=== PATIENT | male | born 1965 | race Caucasian/White ===

== ENCOUNTER 2018-07-02 17:55 | Emergency (ER) | payer SELFPAY ==
[2018-07-02] MEDS ORDERED: NA CHLORIDE 0.9% 1,000 ML ONE (18:56)
--- NOTE | 2018-07-02 19:08 | RAD REPORT ---
EXAM DESCRIPTION: Bisit Single View07/02/2018 6:56 pm CLINICAL HISTORY: CHEST PAIN COMPARISON: Chest Pa And Lat (2 Views) dated 05/09/2017; Chest For Pe Angio dated 05/09/2017 FINDINGS: The lungs appear clear of acute infiltrate. The heart is normal size IMPRESSION: No acute abnormalities displayed
[2018-07-02 19:11] LABS: Absolute Lymphocytes (CBC) 2.4 K/uL (0.7-4.9); Absolute Monocytes 0.6 K/uL (0.1-1.3); Absolute Neutrophil 5.2 K/uL (1.8-8.0); Basophils % 0.5 % (0-1.3); Eosinophils % 2.1 % (0-4.4); Hematocrit 47.5 % (39.6-49.0); Lymphocytes % 28.5 % (15.3-44.8); MCH 32.9 pg (27.0-35.0); MCV 95.6 fL (80-100); MPV 9.9 fL (7.6-11.3); Monocytes % 6.6 % (3.3-12.3); RBC Red Blood Cell Count 4.97 M/uL (4.33-5.43)
--- NOTE | 2018-07-02 19:16 | RAD REPORT ---
EXAM DESCRIPTION: CT - Head Brain Wo Cont - 07/02/2018 6:56 pm CLINICAL HISTORY: DIZZINESS COMPARISON: none TECHNIQUE: Computed axial tomography of the head was obtained. IV contrast was not requested. All CT scans are performed using dose optimization technique as appropriate and may include automated exposure control or mA/KV adjustment according to patient size. FINDINGS: An intracranial bleed is not seen . The ventricles are normal in caliber. No extra-axial fluid collection is noted. Fluid within the sinuses/ mastoids is not seen. IMPRESSION: No acute intracranial abnormality is seen. If patient's symptoms persist MRI of the bra in would be recommended.
[2018-07-02 19:26] LABS: Protime INR 1.2
[2018-07-02 19:33] LABS: AST/SGOT 402 U/L (15-37); Albumin 3.5 g/dL (3.4-5.0); Alkaline Phosphatase 234 U/L (45-117); BUN Blood Urea Nitrogen 15 mg/dL (7-18); Bicarbonate 27 mmol/L (21-32); Bilirubin Total 3.2 mg/dL (0.2-1.0); CKMB Creatine Kinase MB 4.2 ng/mL (0.3-3.6); Creatine Phosphokinase 287 U/L (39-308); Glucose Level 151 mg/dL (74-106); Magnesium 2.2 mg/dL (1.8-2.4); NT PRO-BNP 46 pg/mL (<125); Potassium 4.3 mmol/L (3.5-5.1); Protein, Total 7.5 g/dL (6.4-8.2); Sodium Level 134 mmol/L (136-145); Troponin (Emerg Dept Use Only) < 0.02 ng/mL (0.0-0.045)
[2018-07-02] MEDS ORDERED: ALBUTEROL 2.5 MG/3 ML NEB SOL ONE (19:41)
[2018-07-02 19:42] LABS: ALT/SGPT 301 U/L (12-78)
--- NOTE | 2018-07-02 20:38 | EDPHYS ---
Physician Documentation [facility] Name: Virgilio Samuel Age: 52 yrs Sex: Male : 1965 Arrival Date: 07/02/2018 Time: 17:59 Bed 8 Private MD: ED Physician Gio Noriega HPI: 07/02 20:13 This 52 yrs old Male presents to ER via Ambulatory with complaints of Vision snw Problem, Dizziness. 20:13 Onset: The symptoms/episode began/occurred suddenly, 2 day(s) ago, and became snw persistent. Associated signs and symptoms: Pertinent positives: wheezing. The patient has not experienced similar symptoms in the past. The patient has not recently seen a physician. intermittent dizziness and visual disturbances, Pt drinks 8 beer per day and smokes 2 ppd, no PCP. Historical: - Allergies: 18:19 No Known Allergies; aa5 - PMHx: 18:19 None; aa5 - PSHx: 18:19 Tonsillectomy; L salivary gland; aa5 - Immunization history:: Adult Immunizations unknown. - Social history:: Smoking status: Patient uses tobacco products, smokes two packs cigarettes per day. Patient uses alcohol, claims drinking about a 6 pack/day. - Ebola Screening: : No symptoms or risks identified at this time. ROS: 20:11 Constitutional: Negative for fever, chills, and weight loss, Eyes: Negative for injury, snw pain, redness, and discharge, ENT: Negative for injury, pain, and discharge, Neck: Negative for injury, pain, and swelling, Cardiovascular: Negative for chest pain, palpitations, and edema, Respiratory: Negative for shortness of breath, cough, wheezing, and pleuritic chest pain, Abdomen/GI: Negative for abdominal pain, nausea, vomiting, diarrhea, and constipation, Back: Negative for injury and pain, : Negative for injury, bleeding, discharge, and swelling, MS/Extremity: Negative for injury and deformity, Skin: Negative for injury, rash, and discoloration. 20:11 Neuro: Positive for dizziness, Visual disturbance. Exam: 20:11 Constitutional: This is a well developed, well nourished patient who is awake, alert, snw and in no acute distress. Head/Face: Normocephalic, atraumatic. Eyes: Pupils equal round and reactive to light, extra-ocular motions intact. Lids and lashes normal. Conjunctiva and sclera are non-icteric and not injected. Cornea within normal limits. Periorbital areas with no swelling, redness, or edema. ENT: Nares patent. No nasal discharge, no septal abnormalities noted. Tympanic membranes are normal and external auditory canals are clear. Oropharynx with no redness, swelling, or masses, exudates, or evidence of obstruction, uvula midline. Mucous membranes moist. Neck: Trachea midline, no thyromegaly or masses palpated, and no cervical lymphadenopathy. Supple, full range of motion without nuchal rigidity, or vertebral point tenderness. No Meningismus. Chest/axilla: Normal chest wall appearance and motion. Nontender with no deformity. No lesions are appreciated. Cardiovascular: Regular rate and rhythm with a normal S1 and S2. No gallops, murmurs, or rubs. Normal PMI, no JVD. No pulse deficits. Respiratory: Lungs have equal breath sounds bilaterally, wheezing to auscultation and percussion. No rales, rhonchi noted. No increased work of breathing, no retractions or nasal flaring. Abdomen/GI: Soft, non-tender, with normal bowel sounds. No distension or tympany. No guarding or rebound. No evidence of tenderness throughout. Back: No spinal tenderness. No costovertebral tenderness. Full range of motion. Skin: Warm, dry with normal turgor. Normal color with no rashes, no lesions, and no evidence of cellulitis. MS/ Extremity: Pulses equal, no cyanosis. Neurovascular intact. Full, normal range of motion. Neuro: Awake and alert, GCS 15, oriented to person, place, time, and situation. Cranial nerves II-XII grossly intact. Motor strength 5/5 in all extremities. Sensory grossly intact. Cerebellar exam normal. Normal gait. Psych: Awake, alert, with orientation to person, place and time. Behavior, mood, and affect are within normal limits. Vital Signs: 18:19 BP 141 / 90; Pulse 85; Resp 16 S; Temp 98.9(TE); Pulse Ox 96% on R/A; Weight 81.65 kg aa5 (R); Height 5 ft. 11 in. (180.34 cm) (R); Pain 0/10; 18:19 Body Mass Index 25.10 (81.65 kg, 180.34 cm) aa5 MDM: 18:32 Patient medically screened. snw 20:39 Data reviewed: vital signs, nurses notes. Data interpreted: Pulse oximetry: on room air snw is 96 %. Interpretation: acceptable. Counseling: I had a detailed discussion with the patient and/or guardian regarding: the historical points, exam findings, and any diagnostic results supporting the discharge/admit diagnosis, the presence of at least one elevated blood pressure reading (>120/80) during this emergency department visit, lab results, radiology results, the need for outpatient follow up, to return to the emergency department if symptoms worsen or persist or if there are any questions or concerns that arise at home, smoking cessation. Special discussion: Based on the history and exam findings, there is no indication for further emergent testing or inpatient evaluation. I discussed with the patient/guardian the need to see the corporate pilot for further evaluation of the symptoms. I discussed with the patient/guardian the need to see the primary care provider for further evaluation of the symptoms. 07/02 18:34 Order name: Basic Metabolic Panel; Complete Time: 19:45 snw 07/02 18:34 Order name: CBC with Diff snw 07/02 18:34 Order name: Ckmb; Complete Time: 19:45 snw 07/02 18:34 Order name: CPK; Complete Time: 19:45 snw 07/02 18:34 Order name: LFT's; Complete Time: 19:45 snw 07/02 18:34 Order name: Magnesium; Complete Time: 19:45 snw 07/02 18:34 Order name: NT PRO-BNP; Complete Time: 19:45 snw 07/02 18:34 Order name: PT-INR; Complete Time: 19:29 snw 07/02 18:34 Order name: Ptt, Activated; Complete Time: 19:29 snw 07/02 18:34 Order name: Troponin (emerg Dept Use Only); Complete Time: 19:45 snw 07/02 18:34 Order name: Osmolality, Serum; Complete Time: 20:03 snw 07/02 18:35 Order name: ETOH Level; Complete Time: 19:27 snw 07/02 18:35 Order name: Blood Culture* snw 07/02 19:29 Order name: CBC Smear Scan EDMS 07/02 18:34 Order name: XRAY Chest (1 view); Complete Time: 19:20 snw 07/02 18:34 Order name: CT Head Brain wo Cont; Complete Time: 19:20 snw 07/02 18:34 Order name: EKG; Complete Time: 18:35 snw 07/02 18:34 Order name: Cardiac monitoring; Complete Time: 18:55 snw 07/02 18:34 Order name: EKG - Nurse/Tech; Complete Time: 18:49 snw 07/02 18:34 Order name: IV Saline Lock; Complete Time: 18:49 snw 07/02 18:34 Order name: Labs collected and sent; Complete Time: 18:49 snw 07/02 18:34 Order name: O2 Per Protocol; Complete Time: 18:49 snw 07/02 18:34 Order name: O2 Sat Monitoring; Complete Time: 18:49 snw 07/02 18:35 Order name: FSBS; Complete Time: 19:06 snw Administered Medications: 19:06 Drug: NS 0.9% 1000 ml Route: IV; Rate: 75 ml/hr; Site: left antecubital; la1 20:49 Follow up: IV Status: Order to discontinue infusion la1 19:39 Drug: Albuterol 2.5 mg Route: Inhalation; la1 Disposition: 07/02/18 20:37 Discharged to Home. Impression: Alcohol abuse with intoxication, Wheezing, Tobacco abuse counseling, Unspecified cirrhosis of liver. - Condition is Stable. - Discharge Instructions: Alcohol Intoxication, Diet and Hepatitis, Visual Disturbances, Steps to Quit Smoking, Smoking Hazards, Alcohol Abuse and Nutrition, Health Maintenance, Male, Alcoholic Liver Disease, Imop-ef-Eurm, Alcoholic Hepatitis, Nonalcoholic Fatty Liver Disease Diet. - Medication Reconciliation Form, Thank You Letter, Antibiotic Education, Prescription Opioid Use form. - Follow up: Private Physician; When: 2 - 3 days; Reason: Recheck today's complaints, Continuance of care, Re-evaluation by your physician. Follow up: Emergency Department; When: As needed; Reason: Worsening of condition. - Problem is an acute exacerbation. - Symptoms are unchanged. Addendum: 07/06/2018 07:14 Co-signature as Attending Physician, Gio Noriega MD I agree with the assessment and k dr plan of care. Signatures: Dispatcher [employer] EDMS Gio Noriega MD MD [facility] Sera Raymond, DRIVER SALESMAN-C DRIVER SALESMAN-Csnw Slime Wilhelm, RN RN aa5 Jimbo Hughes, LORENZO RN la1 Corrections: (The following items were deleted from the chart) 07/02 20:13 20:11 Constitutional: This is a well developed, well nourished patient who is awake, snw alert, and in no acute distress. Head/Face: Normocephalic, atraumatic. Eyes: Pupils equal round and reactive to light, extra-ocular motions intact. Lids and lashes normal. Conjunctiva and sclera are non-icteric and not injected. Cornea within normal limits. Periorbital areas with no swelling, redness, or edema. ENT: Nares patent. No nasal discharge, no septal abnormalities noted. Tympanic membranes are normal and external auditory canals are clear. Oropharynx with no redness, swelling, or masses, exudates, or evidence of obstruction, uvula midline. Mucous membranes moist. Neck: Trachea midline, no thyromegaly or masses palpated, and no cervical lymphadenopathy. Supple, full range of motion without nuchal rigidity, or vertebral point tenderness. No Meningismus. Chest/axilla: Normal chest wall appearance and motion. Nontender with no deformity. No lesions are appreciated. Cardiovascular: Regular rate and rhythm with a normal S1 and S2. No gallops, murmurs, or rubs. Normal PMI, no JVD. No pulse deficits. Respiratory: Lungs have equal breath sounds bilaterally, clear to auscultation and percussion. No rales, rhonchi or wheezes noted. No increased work of breathing, no retractions or nasal flaring. Abdomen/GI: Soft, non-tender, with normal bowel sounds. No distension or tympany. No guarding or rebound. No evidence of tenderness throughout. Back: No spinal tenderness. No costovertebral tenderness. Full range of motion. Skin: Warm, dry with normal turgor. Normal color with no rashes, no lesions, and no evidence of cellulitis. MS/ Extremity: Pulses equal, no cyanosis. Neurovascular intact. Full, normal range of motion. Neuro: Awake and alert, GCS 15, oriented to person, place, time, and situation. Cranial nerves II-XII grossly intact. Motor strength 5/5 in all extremities. Sensory grossly intact. Cerebellar exam normal. Normal gait. Psych: Awake, alert, with orientation to person, place and time. Behavior, mood, and affect are within normal limits. snw 20:49 20:37 07/02/2018 20:37 Discharged to Home. Impression: Alcohol abuse with intoxication; la1 Wheezing; Tobacco abuse counseling; Unspecified cirrhosis of liver. Condition is Stable. Forms are Medication Reconciliation Form, Thank You Letter, Antibiotic Education, Prescription Opioid Use. Follow up: Private Physician; When: 2 - 3 days; Reason: Recheck today's complaints, Continuance of care, Re-evaluation by your physician. Follow up: Emergency Department; When: As needed; Reason: Worsening of condition. Problem is an acute exacerbation. Symptoms are unchanged. snw
--- NOTE | 2018-07-02 20:38 | ER ---
Nurse's Notes [facility] Name: Virgilio Samuel Age: 52 yrs Sex: Male : 1965 Arrival Date: 07/02/2018 Time: 17:59 Bed 8 Private MD: Diagnosis: Alcohol abuse with intoxication;Wheezing;Tobacco abuse counseling;Unspecified cirrhosis of liver Presentation: 07/02 18:17 Presenting complaint: Patient states: blurry vision, dizzy, lightheaded that began 2 aa5 days ago. Pt denies pain. Denies nausea, denies vomiting. Transition of care: patient was not received from another setting of care. Onset of symptoms was June 30, 2018. Risk Assessment: Do you want to hurt yourself or someone else? Patient reports no desire to harm self or others. Initial Sepsis Screen: Does the patient meet any 2 criteria? No. Patient's initial sepsis screen is negative. Does the patient have a suspected source of infection? No. Patient's initial sepsis screen is negative. Care prior to arrival: None. 18:17 Method Of Arrival: Ambulatory aa5 18:17 Acuity: CHITO 3 aa5 Historical: - Allergies: 18:19 No Known Allergies; aa5 - PMHx: 18:19 None; aa5 - PSHx: 18:19 Tonsillectomy; L salivary gland; aa5 - Immunization history:: Adult Immunizations unknown. - Social history:: Smoking status: Patient uses tobacco products, smokes two packs cigarettes per day. Patient uses alcohol, claims drinking about a 6 pack/day. - Ebola Screening: : No symptoms or risks identified at this time. Screenin:51 Abuse screen: Denies threats or abuse. Nutritional screening: No deficits noted. la1 Tuberculosis screening: No symptoms or risk factors identified. Fall Risk None identified. Assessment: 18:50 General: Appears in no apparent distress. Behavior is calm, cooperative. Pain: Denies la1 pain. Neuro: Level of Consciousness is awake, alert, obeys commands, Oriented to person, place, time, situation, Vp Delivery are equal bilaterally Moves all extremities. Full function Gait is steady, Speech is normal, Facial symmetry appears normal, Pupils are PERRLA. Neuro: Reports dizziness, since 2 days ago. Cardiovascular: Capillary refill < 3 seconds Patient's skin is warm and dry. Respiratory: Airway is patent Respiratory effort is even, unlabored, Respiratory pattern is regular, symmetrical, Breath sounds are clear bilaterally. GI: No signs and/or symptoms were reported involving the gastrointestinal system. : No signs and/or symptoms were reported regarding the genitourinary system. EENT: Reports blurred vision since 2 days ago. 20:32 Reassessment: Patient appears in no apparent distress at this time. No changes from la1 previously documented assessment. Patient and/or family updated on plan of care and expected duration. Pain level reassessed. Patient is alert, oriented x 3, equal unlabored respirations, skin warm/dry/pink. Vital Signs: 18:19 BP 141 / 90; Pulse 85; Resp 16 S; Temp 98.9(TE); Pulse Ox 96% on R/A; Weight 81.65 kg aa5 (R); Height 5 ft. 11 in. (180.34 cm) (R); Pain 0/10; 18:19 Body Mass Index 25.10 (81.65 kg, 180.34 cm) aa5 ED Course: 17:59 Patient arrived in ED. mr 18:18 Triage completed. aa5 18:19 Arm band placed on. aa5 18:31 EKG done, by ED staff, reviewed by Sera CORONADO. jb1 18:32 Sera Raymond FNP-C is [facility]. snw 18:32 Gio Noriega MD is Attending Physician. snw 18:37 Jimbo Hughes RN is Primary Nurse. la1 18:51 X-ray completed. Portable x-ray completed in exam room. Patient tolerated procedure jb2 well. 18:51 Placed in gown. Bed in low position. Call light in reach. ekg monitor tech on. Pulse ox la1 on. NIBP on. 18:57 XRAY Chest (1 view) In Process Unspecified. EDMS 18:57 CT Head Brain wo Cont In Process Unspecified. EDMS 19:51 Notified Nurse Practitioner and/or Physician Group Home Paraprofessional of a critical lab result(s), la1 AST/ALT. 20:49 No provider procedures requiring assistance completed. IV discontinued, intact, la1 bleeding controlled, No redness/swelling at site. Pressure dressing applied. Administered Medications: 19:06 Drug: NS 0.9% 1000 ml Route: IV; Rate: 75 ml/hr; Site: left antecubital; la1 20:49 Follow up: IV Status: Order to discontinue infusion la1 19:39 Drug: Albuterol 2.5 mg Route: Inhalation; la1 Outcome: 20:37 Discharge ordered by MD. márquez 20:49 Discharged to home ambulatory. la1 20:49 Condition: stable 20:49 Discharge instructions given to patient, Instructed on discharge instructions, follow up and referral plans. medication usage, Demonstrated understanding of instructions, follow-up care, medications. 20:49 Patient left the ED. la1 Signatures: Dispatcher [employer] EDMS Jatinder Summers jb1 Sera Raymond, COPY DIRECTOR-C COPY DIRECTOR-Csnw Maria Teresa Jacinto mr [email or web address] Slime Wilhelm RN RN aa5 Jimbo Hughes RN RN la1
[2018-07-02 21:38] LABS: Blood Morphology Comment NOT SEEN (NOT SEEN); Platelet Estimate DECR; Urine White Blood Cell Casts OK
--- NOTE | 2018-07-03 07:55 | EKG ---
Test Date: 2018-07-02 Test Time: 18:26:15 Apparel Rental Clerk: MAVIS MEASUREMENT RESULTS: Intervals: Rate: 79 HI: 140 QRSD: 82 QT: 386 QTc: 442 [place]: P: 78 HI: 140 QRS: 59 T: 74 INTERPRETIVE STATEMENTS: Normal sinus rhythm Normal ECG Compared to ECG 05/09/2017 11:13:22 No significant changes Electronically Signed On 07-03-18 07:54:40 CDT by Osito Domingo
== END 2018-07-02 20:49 | disposition home or self-care (01) ==
LOC: ER 17:55
DX: F10.129 Alcohol abuse with intoxication, unspecified (principal); R06.2 Wheezing; K74.60 Unspecified cirrhosis of liver; F17.210 Nicotine dependence, cigarettes, uncomplicated; Z71.6 Tobacco abuse counseling
CPT/HCPCS: 36415; 70450; 71045; 80048; 80076; 80320; 82550; 82553; 82962; 83735; 83880; 83930; 84484; 85025; 85610; 85730; 87040; 93005; 96360; 96361; 99285; J7030